=== PATIENT | female | born 2000 | race Hispanic/Latino ===

== ENCOUNTER 2023-10-24 13:08 | Emergency (ER) | payer BC ==
[~2023-10-24] VITALS: Ht 162.6 cm; Wt 83.9 kg
[2023-10-24 15:25] VITALS: BP 120/66; PULSE 83; RESP 16; O2SAT 100
== END 2023-10-24 15:45 | disposition home or self-care (01) ==
LOC: EDH 13:08
DX: S80.02XA Contusion of left knee, initial encounter (principal); S40.022A Contusion of left upper arm, initial encounter; M25.512 Pain in left shoulder; Y04.2XXA Assault by strike against or bumped into by another person, initial encounter; Y93.89 Activity, other specified; Y92.89 Other specified places as the place of occurrence of the external cause; Y99.8 Other external cause status
CPT/HCPCS: 73030; 73060; 73562